=== PATIENT | female | born 1955 | race Caucasian/White ===

== ENCOUNTER 2022-09-07 11:01 | Outpatient (CLI) | payer OTHER, SELFPAY ==
[2022-09-07 11:22] LABS: Hematocrit 43.3 % (35.0-49.0); Hemoglobin 14.7 g/dL (12.0-15.0); Mean Corpuscular HGB Conc 33.9 g/dL (32.0-36.0); Mean Corpuscular Hemoglobin 33.2 pg (27.0-31.0); Mean Corpuscular Volume 97.7 fL (78.0-102.0); Mean Platelet Volume 9.4 fl (9.2-11.8); Platelet Count Result 264 K/mm3 (150-420); Red Blood Count 4.43 M/mm3 (4.20-5.40); White Blood Count 9.2 K/mm3 (4.8-10.8)
[2022-09-07 11:32] LABS: Hemoglobin A1C 6.4 % (<5.7)
[2022-09-07 11:55] LABS: Creatinine Urine 192.71 mg/dL (40-278); MALB Creatinine Ratio 6.7 mg/g (0-30); Microalbumin Urine Random < 13.0 mg/L
[2022-09-07 11:59] LABS: Alanine Aminotransferase 21 U/L (14-59); Alkaline Phosphatase 56 U/L (46-116); Anion Gap 12 mmol/L (8-16); Aspartate Amino Transferase 15 U/L (15-37); Bilirubin,Total 0.4 mg/dL (0.00-1.00); Blood Urea Nitrogen 13 mg/dL (7-18); Calcium 9.3 mg/dL (8.5-10.1); Carbon Dioxide 23 mmol/L (21-32); Chloride 107 mmol/L (98-108); Cholesterol 221 mg/dL (0-200); Estimated Glomerular Filt Rate > 60; Glucose 117 mg/dL (70-99); HDL Direct 58 mg/dL (40-60); LDL Cholesterol Calculated 142 mg/dL (<130); Osmolality Calculated 295 mOsm/kg (285-295); Sodium 142 mmol/L (136-145); Total Protein 7.1 g/dL (6.4-8.2); Triglycerides 103 mg/dL (0-150)
== END 2022-09-07 11:02 | disposition home or self-care (01) ==
PROVIDERS: PCP Family Medicine; Visit Provider Family Medicine
DX: E11.9 Type 2 diabetes mellitus without complications (principal); I10 Essential (primary) hypertension
CPT/HCPCS: 36415; 80053; 80061; 82043; 83036; 85027

== ENCOUNTER 2022-11-20 18:28 | Emergency (ER) | payer OTHER, SELFPAY ==
[2022-11-20 18:44] VITALS: BP 154/87; PULSE 88; RESP 20; TEMP 36.3; O2SAT 98
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
[2022-11-20 19:51] LABS: Hematocrit 43.9 % (35.0-49.0); Mean Corpuscular HGB Conc 34.2 g/dL (32.0-36.0); Mean Corpuscular Hemoglobin 32.6 pg (27.0-31.0); Mean Corpuscular Volume 95.4 fL (78.0-102.0); Mean Platelet Volume 9.4 fl (9.2-11.8); Platelet Count Result 315 K/mm3 (150-420); Red Cell Distribution Width 12.7 % (11.6-14.4); White Blood Count 9.9 K/mm3 (4.8-10.8)
[2022-11-20 20:02] LABS: Amphetamine Screen Urine Negative (Negative); Barbiturate Screen Urine Negative (Negative); Benzodiazepines Screen Urine Negative (Negative); Cannabinoid Screen Urine Positive (Negative); Cocaine Screen Urine Negative (Negative); Methadone Screen Urine Negative (Negative); Opiate Screen Urine Negative (Negative); Phencyclidine Screen Urine Negative (Negative)
[2022-11-20 20:05] LABS: Acetaminophen 15 ug/mL (10-30); Alanine Aminotransferase 28 U/L (14-59); Albumin Level 4.1 g/dL (3.4-5.0); Alkaline Phosphatase 74 U/L (46-116); Anion Gap 12 mmol/L (8-16); Aspartate Amino Transferase 13 U/L (15-37); Bilirubin,Total 0.4 mg/dL (0.00-1.00); Blood Urea Nitrogen 10 mg/dL (7-18); Calcium 9.2 mg/dL (8.5-10.1); Carbon Dioxide 26 mmol/L (21-32); Chloride 102 mmol/L (98-108); Estimated CRCL calculation 37 ml/min; Estimated Glomerular Filt Rate 47; Glucose 310 mg/dL (70-99); Osmolality Calculated 301 mOsm/kg (285-295); Potassium 3.3 mmol/L (3.5-5.1); Salicylate 5.4 mg/dL (2.8-20.0); Sodium 140 mmol/L (136-145); Total Protein 7.4 g/dL (6.4-8.2)
[2022-11-20 20:06] LABS: Ethanol < 3 mg/dL (0-6)
--- NOTE | 2022-11-20 20:31 | PC.NURSE ---
this staff member observed patient standing in room talking loudly in a joyful manner. this staff member asked the patient if she was talking to somebody. pt stated, I am just talking because there is no one else to talk to.
[2022-11-20 20:35] LABS: Influenza A QL RT-PCR Negative (Negative); Influenza B QL RT-PCR Negative (Negative); SARS-CoV-2 RNA PCR Negative (Negative)
--- NOTE | 2022-11-20 20:42 | PC.NURSE ---
this staff member asked the patient what medication she takes for her diabetes and pt stated, I don't have diabetes. I don't take any medications. Informed Md Gonzalez what the pt said.
--- NOTE | 2022-11-20 20:46 | PC.NURSE ---
pt attempted to leave the [employer] operatorShiv Morataya able to escort pt back to room 5. pt stated, I have asked are your questions and I am clear so I can go.
--- NOTE | 2022-11-20 20:49 | PC.NURSE ---
Pt attempted to walk out of the department and was redirected to room by this RN. [id number]
--- NOTE | 2022-11-20 20:51 | PC.NURSE ---
pt said that she is leaving. Md Gonzalez explained that she needs to stay until she is medical clear and that a social worker delinquency prevention would be called to talk to her. pt said, I am leaving. pt walked out of the ER. Md Gonzalez said to call the police to have the pt brought back to the ER.
--- NOTE | 2022-11-20 20:52 | PC.NURSE ---
requested i call police. [employer] was notified and was sending an officer 20:51
--- NOTE | 2022-11-20 20:56 | PC.NURSE ---
[place] Police in ER. [place] police asked if we wanted the pt back and Md Gonzalez said that you brought her in for psychiatric evaluation and we are not done with our evaluation so she needs to be brought back.
--- NOTE | 2022-11-20 21:05 | PC.NURSE ---
[place] police returned pt to ER. Pt placed in room five and per Md Gonzalez the door to room 5 can be locked.
--- NOTE | 2022-11-20 21:24 | PC.NURSE ---
Pt ambulated to bathroom with steady gait. pt returned to room 5. pt said, You don't need to lock the door. I know I can not leave. this staff member informed pt that the door will not be locked but she needs to remain in the room and the door needs to remain closed.
--- NOTE | 2022-11-20 21:26 | PC.NURSE ---
Pt opened door and exited room and started to walk down the caicedo. this staff member informed the pt that she needs to stay in the room with the door closed. pt returned to room 5 but wanted the door left open. this staff member informed that patients needs to remains in the room and the door needs to remain closed.
--- NOTE | 2022-11-20 21:29 | PC.NURSE ---
pt currently resting in bed at this time.
--- NOTE | 2022-11-20 21:45 | PC.NURSE ---
pt left room 5 and would not return to room 5. [place] police and [facility] police were still at ER and were requested to escort pt back to room 5. Pt returned to room 5 and per Md Gonzalez said that the door to room 5 can be locked for patient safety.
--- NOTE | 2022-11-20 21:50 | PC.NURSE ---
pt goes from resting on the bed to standing at the door yelling to have the door opened.
--- NOTE | 2022-11-20 21:55 | PC.NURSE ---
pt laying on floor talking under the door.
--- NOTE | 2022-11-20 22:07 | PC.NURSE ---
Pd called again for assistance with pt
[2022-11-20] MEDS: HALOPERIDOL LACTATE 5 MG/ML VIAL IM (22:21)
[2022-11-20] MEDS: LORazepam INJ (*CRX) 2 MG/ML VIAL IM (22:22)
[2022-11-20] MEDS: diphenhydrAMINE HCl INJ 50 MG/ML VIAL IM (22:22)
--- NOTE | 2022-11-20 22:25 | PC.NURSE ---
At 2205, pt requested to be allowed to use the bathroom. once pt was allowed out of room 5, pt would not use the bathroom and demanded to leave the ER. [employer] contacted while pt was walking out of the ER. [employer] met pt at the ER entrance and escorted pt back to room 5. pt requested water while being escorted back to room and was given a cup of water. pt threw the cup of water at the police. Md Gonzalez aware of the situation and new medication orders entered. Pt medicated with the assistance of turton , Md gonzalez, ANTHONY Morataya and ANTHONY Alberto.
--- NOTE | 2022-11-20 22:31 | PC.NURSE ---
pt banging on the room door and saying in a loud voice that she wants water. Pt was not given additional water because she has thrown water at the police. since 1900, pt has received 4 cups of water and allowed to use the bathroom three time with the last time at 2228. pt observed banging on TV screen, door and wall while stating in a loud voice that she wants water. pt currently laying on the floor and talking in a loud voice under the door that she wants water.
--- NOTE | 2022-11-20 22:52 | PC.NURSE ---
pt appears to be resting quietly on the floor facing the bottom of the door. pt being monitored by remote camera.
--- NOTE | 2022-11-20 23:01 | PC.NURSE ---
pt resting on bed at this time. pt being monitored via remote camera.
--- NOTE | 2022-11-20 23:49 | PC.NURSE ---
[facility] in ER at this time.
--- NOTE | 2022-11-21 04:11 | PC.NURSE ---
[facility] leaving the ER and will keep us updated with possible patient placement.
--- NOTE | 2022-11-21 05:39 | PC.NURSE ---
pt resting quietly in bed. pt being video monitored.
[2022-11-21 07:30] VITALS: BP 146/73; PULSE 87; RESP 14; TEMP 36.7; O2SAT 99
[2022-11-21 07:47] LABS: Glucose Point of Care 149 mg/dl (65-105)
[2022-11-21 10:59] VITALS: PULSE 72
[2022-11-21] MEDS: ZIPRASIDONE HCL 20 MG CAPSULE PO (10:59)
[2022-11-21] MEDS: METOPROLOL SUCCINATE EXT REL 25 MG TABCR PO (10:59)
[2022-11-21] MEDS: lisinopriL 5 MG TABLET PO (10:59)
[2022-11-21 11:30] VITALS: BP 131/65; PULSE 74; RESP 16; TEMP 36.7; O2SAT 99
--- NOTE | 2022-11-21 13:03 | PC.NURSE ---
@1251 [place] police dept. notified of pt left hospital and is wearing paper scrubs. @1253 2nd floor staff notified of pt elopement. @1258 er dept managers searching 1st floor corridors and external campus...pt not seen on er surveillance cameras. @1301 incoming staff called to report pt seen on side of road between [facility] and [facility]. [employer] notified.
--- NOTE | 2022-11-21 14:27 | PC.NURSE ---
@1400 spd contacted. pt not found. states they will go by her home to see if she shows up there. states they will bring her back if they find her.
--- NOTE | 2022-11-21 14:29 | PC.NURSE ---
@ 6223 [facility] notified of pt elopement and not returned.
--- NOTE | 2022-11-22 10:49 | PC.NURSE ---
pt arrives at this facility requesting belongings she left yesterday when she eloped from this er. pt belongings given to pt and pt left facility.
== END 2022-11-21 14:36 | disposition left against medical advice (07) ==
PROVIDERS: Emergency Medicine; Emergency Provider Emergency Medicine; PCP Family Medicine
DX: F29 Unspecified psychosis not due to a substance or known physiological condition (principal); E11.65 Type 2 diabetes mellitus with hyperglycemia; I10 Essential (primary) hypertension; Z87.891 Personal history of nicotine dependence; Z20.822 Contact with and (suspected) exposure to COVID-19
CPT/HCPCS: 36415; 80053; 80307; 82948; 85027; 87636; 96372; 99284; A9270; J1200; J1630; J2060

== ENCOUNTER 2023-05-03 12:52 | Outpatient (CLI) | payer MEDICARE, MEDICAID, SELFPAY ==
--- NOTE | ~2023-05-03 | MM_ITS ---
EXAMINATION: MM screening manuel BI w noé HISTORY: Screening mammogram TECHNIQUE: Craniocaudal and mediolateral oblique 3-D tomosynthesis images were obtained and synthetic 2-D images were generated. CAD analysis was submitted and interpreted. COMPARISON: No prior mammogram is available for comparison at this institution. BREAST PARENCHYMAL COMPOSITION: The breasts are heterogeneously dense, which may obscure small masses . FINDINGS: RIGHT BREAST: No suspicious mass, calcification, or architectural distortion are identified to sugges t malignancy. LEFT BREAST: There is possible architectural distortion in the middle third of the left breast best a ppreciated 7.5 cm from the nipple on the mediolateral oblique view in line with the nipple axis. IMPRESSION: 1. Possible left breast architectural distortion which may represent the patient's baseline however n o comparison is currently available. 2. Comparison with prior mammograms is necessary. BI-RADS Category 0: Incomplete: Needs comparison with prior mammograms. Reviewed, dictated and finalized at location A. CTION PREVENTIONIST IMPRESSION: 1. Possible left breast architectural distortion which may represent the patien t's baseline however no comparison is currently available. 2. Comparison with prior mammograms is necessary. BI-RADS Category 0: Incomplete: Needs comparison with prior mammograms.
== END 2023-05-03 12:53 | disposition home or self-care (01) ==
LOC: CHSIMG 12:54
PROVIDERS: PCP Family Medicine; Visit Provider Family Medicine
DX: Z12.31 Encounter for screening mammogram for malignant neoplasm of breast (principal); R92.8 Other abnormal and inconclusive findings on diagnostic imaging of breast
CPT/HCPCS: 77063; 77067

== ENCOUNTER 2023-06-30 08:54 | Outpatient (CLI) | payer MEDICARE, MEDICAID, SELFPAY ==
--- NOTE | ~2023-06-30 | MMUS_ITS ---
EXAMINATION: MM diagnostic manuel LT w noé, US breast LT complete HISTORY: Follow-up left breast asymmetry TECHNIQUE: Additional 3-D tomosynthesis images of the left breast were performed and synthetic 2-D im ages were generated. CAD analysis was submitted and interpreted. High resolution complete left breast ultrasound was performed. COMPARISON: Comparison to multiple prior studies sequentially, with oldest reviewed study dated 01/2018. BREAST PARENCHYMAL COMPOSITION: Dense: The breasts are heterogeneously dense, which may obscure small masses FINDINGS: MAMMOGRAPHIC FINDINGS: There are no suspicious masses, calcifications or architectural distortion in the left breast to sugg est malignancy ULTRASOUND: Complete US of all 4 quadrants of the left breast and retroareolar region was reviewed. Normal hetero geneous echotexture without focal solid or cystic mass. IMPRESSION: 1. No evidence for malignancy in the left breast. 2. Routine yearly screening mammogram and regular clinical breast examination are recommended. BI-RADS Category 1: Negative Reviewed, dictated and finalized at location A. J2EE APPLICATION DEVELOPER IMPRESSION: 1. No evidence for malignancy in the left breast. 2. Routine yearly screening mammogram and regular clinical breast examination a re recommended. BI-RADS Category 1: Negative
== END 2023-06-30 08:55 | disposition home or self-care (01) ==
LOC: CHSIMG 08:57
PROVIDERS: PCP Family Medicine; Visit Provider Family Medicine
DX: R92.8 Other abnormal and inconclusive findings on diagnostic imaging of breast (principal)
CPT/HCPCS: 76641; 77061; 77065; G0279

== ENCOUNTER 2023-09-13 11:26 | Outpatient (CLI) | payer MEDICARE, MEDICAID, SELFPAY ==
[2023-09-13 12:02] LABS: Hemoglobin A1C 6.2 % (<5.7)
[2023-09-13 12:23] LABS: Alanine Aminotransferase 26 U/L (14-59); Albumin Level 3.9 g/dL (3.4-5.0); Alkaline Phosphatase 46 U/L (46-116); Anion Gap 8 mmol/L (4-12); Aspartate Amino Transferase 16 U/L (15-37); Bilirubin,Total 0.3 mg/dL (0.00-1.00); Blood Urea Nitrogen 30 mg/dL (7-18); Calcium 8.3 mg/dL (8.5-10.1); Carbon Dioxide 28 mmol/L (21-32); Chloride 101 mmol/L (98-108); Cholesterol 247 mg/dL (0-200); Estimated Glomerular Filt Rate 46; Glucose 157 mg/dL (70-99); HDL Direct 77 mg/dL (40-60); LDL Cholesterol Calculated 97 mg/dL (<130); Osmolality Calculated 293 mOsm/kg (285-295); Potassium 4.8 mmol/L (3.5-5.1); Sodium 137 mmol/L (136-145); Total Protein 6.8 g/dL (6.4-8.2); Triglycerides 363 mg/dL (0-150)
[2023-09-15 10:33] LABS: Valproic Acid 59.2 mg/L (50.0-100.0)
== END 2023-09-13 11:27 | disposition home or self-care (01) ==
LOC: CHSLAB 11:28
PROVIDERS: PCP Family Medicine; Visit Provider Family Medicine
DX: F31.9 Bipolar disorder, unspecified (principal); E11.9 Type 2 diabetes mellitus without complications
CPT/HCPCS: 36415; 80053; 80061; 80164; 83036

== ENCOUNTER 2023-09-19 07:59 | Outpatient (RCR) | payer MEDICARE, MEDICAID, SELFPAY ==
--- NOTE | 2023-09-19 10:22 | PTOPEVAL1 ---
Assessment and note entered by Shyann Soto DPT Evaluation Information Assessment Status Evaluation Diagnosis low back pain, R radiating pain Onset 09/15/23 Subjective Information Patient reports she is unsure of an injury but has had low back pain and R LE radiating pain for about 3 weeks. She reports pain is at the R sided low back and pain radiates to the calf with foot numb. 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 She reports she has had 2 years of pain free. She reports pain with standing to do dishes, heavy house hold tasks, and walking her dog. She reports she has not had any imaging. She does not have a follow up scheduled with PCP. She reports she is not currently working. Reported Pain Level Pain Score 6: Self Report Assessment PT Clinical Summary Ms. Sherman is a 67 year old female who presents to PT with R sided low back pain with radiating symptoms. Patient demonstrates decreased R LE strength, decreased R LE sensation, hypomobility to the lumbar spine and R anterior innominate rotation impairing her ability to sweet pickled fruit maker objects from the ground, stand to do dishes and ambulate to walk her dog. She would benefit from skilled PT to address impairments and return to PLOF. Plan of Care Interventions Electrical Stimulation,Gait Training,Hot Pack/Cold Pack,Manual Therapy,Mechanical Traction,Neuro Re- education,Patient/Caregiver Educati,Therapeutic Activities,Therapeutic Exercise PT Services Indicated Yes Treatment Frequency and 3x weekly for 12 visits Duration These treatments will address the objective and functional deficits as defined above. The patient will be advanced safely and appropriately in order for the patient to progress towards his/her prior level of function. Additional exercises will be introduced and as well as a comprehensive home exercise program upon discharge, if needed, ?to ensure carryover of functional gains achieved in the clinic. This treatment plan has been reviewed and agreement upon by the patient.
--- NOTE | 2023-09-19 10:22 | OPREHPOC ---
Outpatient Therapy Plan of Care This is a Multidisciplinary Plan of Care that may contain components documented by all disciplines (PT, OT, and ST.) PT Problem 1 PT Problem #1 Knowledge Deficit PT Goal 1 Goal patient to report independence with HEP Target Visit 6 PT Problem 2 PT Problem #2 Pain PT Goal 1 Goal 1. patient to report highest pain at 4/10 2. patient to report ability to sleep with no disturbance due to low back pain Target Visit 12 PT Problem 3 PT Problem #3 Impaired Range of Motion PT Goal 1 Goal Patient to demonstrate ability to reach to the floor to return to picking up objects around the home Target Visit 12 PT Problem 4 PT Problem #4 Impaired Strength PT Goal 1 Goal Patient to demonstrate 5/5 B LE strength to return to standing to complete dishes Target Visit 12 PT Problem 5 PT Problem #5 Impaired Functional Mobil PT Goal 1 Goal 1. Patient to report ability to walk her dog for 30 minutes 2. Patient to report ability to complete house hold tasks at PLOF 3. Patient to score less than 20% disability on Back Index Target Visit 12
--- NOTE | 2023-10-04 14:02 | PCPTNOTE ---
10/04/23: Pt cancelled today's appointment due to not feeling well. She will be in on 10/06/23. -Yenny Sanchez, PT
--- NOTE | 2023-10-11 16:43 | OPREHPOC ---
Outpatient Therapy Plan of Care This is a Multidisciplinary Plan of Care that may contain components documented by all disciplines (PT, OT, and ST.) PT Problem 1 PT Problem #1 Knowledge Deficit PT Goal 1 Goal patient to report independence with HEP Target Visit 6 Progress Met PT Problem 2 PT Problem #2 Pain PT Goal 1 Goal 1. patient to report highest pain at 4/10 2. patient to report ability to sleep with no disturbance due to low back pain Target Visit 12 Progress Met PT Problem 3 PT Problem #3 Impaired Range of Motion PT Goal 1 Goal Patient to demonstrate ability to reach to the floor to return to picking up objects around the home Target Visit 12 Progress Met PT Problem 4 PT Problem #4 Impaired Strength PT Goal 1 Goal Patient to demonstrate 5/5 B LE strength to return to standing to complete dishes Target Visit 12 Progress Partially Met PT Problem 5 PT Problem #5 Impaired Functional Mobil PT Goal 1 Goal 1. Patient to report ability to walk her dog for 30 minutes 2. Patient to report ability to complete house hold tasks at PLOF 3. Patient to score less than 20% disability on Back Index Target Visit 12 Progress Not Met
--- NOTE | 2023-10-11 16:43 | PTOPPROG ---
Assessment and note entered by JT File, PT Evaluation Information Assessment Status Progress Diagnosis low back pain, R radiating pain Onset 09/15/23 Subjective Information patient reports she no longer has pain in the lower back. however, she is still suffering from numbness in the R LE down to the calf and foot. Assessment PT Clinical Summary mr. gotti presents to skilled PT services for her 10th skilled PT visit today. she displays improvements in lumbar rom, LE strength, and pain reduction. however, she continues to have radicular symptoms in the R LE. she has made good progress towards all goals, and would benefit from continued skilled PT to address her remaining objective/functional deficits to return to all prior level functional activities/quality of life. Plan of Care Interventions Electrical Stimulation,Gait Training,Hot Pack/Cold Pack,Manual Therapy,Mechanical Traction,Neuro Re- education,Patient/Caregiver Educati,Therapeutic Activities,Therapeutic Exercise PT Services Indicated Yes Treatment Frequency and continue skilled PT per initial POC. Duration These treatments will address the objective and functional deficits as defined above. The patient will be advanced safely and appropriately in order for the patient to progress towards his/her prior level of function. Additional exercises will be introduced and as well as a comprehensive home exercise program upon discharge, if needed, ?to ensure carryover of functional gains achieved in the clinic. This treatment plan has been reviewed and agreement upon by the patient.
--- NOTE | 2023-10-27 07:44 | OPREHPOC ---
Outpatient Therapy Plan of Care This is a Multidisciplinary Plan of Care that may contain components documented by all disciplines (PT, OT, and ST.) PT Problem 1 PT Problem #1 Knowledge Deficit PT Goal 1 Goal patient to report independence with HEP Target Visit 6 Progress Met PT Problem 2 PT Problem #2 Pain PT Goal 1 Goal 1. patient to report highest pain at 4/10 2. patient to report ability to sleep with no disturbance due to low back pain Target Visit 12 Progress Met PT Problem 3 PT Problem #3 Impaired Range of Motion PT Goal 1 Goal Patient to demonstrate ability to reach to the floor to return to picking up objects around the home Target Visit 12 Progress Met PT Problem 4 PT Problem #4 Impaired Strength PT Goal 1 Goal Patient to demonstrate 5/5 B LE strength to return to standing to complete dishes Target Visit 18 Progress Partially Met PT Problem 5 PT Problem #5 Impaired Functional Mobil PT Goal 1 Goal 1. Patient to report ability to walk her dog for 30 minutes 2. Patient to report ability to complete house hold tasks at PLOF 3. Patient to score less than 20% disability on Back Index 4. Patient to report no R LE radicular symptoms. Target Visit 18 Progress Not Met
--- NOTE | 2023-10-27 07:45 | PTOPREEVAL ---
Assessment and note entered by JT File, PT Evaluation Information Assessment Status Re-evaluation Diagnosis low back pain, R radiating pain Onset 09/15/23 Subjective Information patient reports she feels Alright today. she reports she has no lower back pain, but has continued radiation of symptoms into the R LE. she reports things have gotten better with skilled PT , but has not resolved this R LE issue. Reported Pain Level Pain Score 1: Self Report Assessment PT Clinical Summary mrs. gotti presents to skilled PT services today for her 12th skilled therapy visit. she presents today again with no pain in the lower back, but R LE radicular complaints/symptoms. she continues to display weakness of the R hip and R knee. progress has been made towards goals, as reported today and on her last progress note. however, she continues to not have met goals for strength and functional mobility. she would benefit from continued skilled PT to address her remaining deficits/functional decline. initiated mechanical lumbar traction today with patient. will continue to monitor response to this treatment, and add additional exercises/activities as tolerated to achieve remaining unmet goals. Plan of Care Interventions Electrical Stimulation,Gait Training,Hot Pack/Cold Pack,Manual Therapy,Mechanical Traction,Neuro Re- education,Patient/Caregiver Educati,Therapeutic Activities,Therapeutic Exercise PT Services Indicated Yes Treatment Frequency and continue skilled PT 3x weekly for 6 more visits Duration These treatments will address the objective and functional deficits as defined above. The patient will be advanced safely and appropriately in order for the patient to progress towards his/her prior level of function. Additional exercises will be introduced and as well as a comprehensive home exercise program upon discharge, if needed, ?to ensure carryover of functional gains achieved in the clinic. This treatment plan has been reviewed and agreement upon by the patient.
--- NOTE | 2023-11-01 13:54 | PCPTNOTE ---
pt called and cancelled. No reason given
--- NOTE | 2023-11-10 11:23 | OPREHPOC ---
Outpatient Therapy Plan of Care This is a Multidisciplinary Plan of Care that may contain components documented by all disciplines (PT, OT, and ST.) PT Problem 1 PT Problem #1 Knowledge Deficit PT Goal 1 Goal patient to report independence with HEP Target Visit 6 Progress Met PT Problem 2 PT Problem #2 Pain PT Goal 1 Goal 1. patient to report highest pain at 4/10 2. patient to report ability to sleep with no disturbance due to low back pain Target Visit 12 Progress Met PT Problem 3 PT Problem #3 Impaired Range of Motion PT Goal 1 Goal Patient to demonstrate ability to reach to the floor to return to picking up objects around the home Target Visit 12 Progress Met PT Problem 4 PT Problem #4 Impaired Strength PT Goal 1 Goal Patient to demonstrate 5/5 B LE strength to return to standing to complete dishes Target Visit 18 Progress Not Met PT Problem 5 PT Problem #5 Impaired Functional Mobil PT Goal 1 Goal 1. Patient to report ability to walk her dog for 30 minutes. met 2. Patient to report ability to complete house hold tasks at PLOF. met 3. Patient to score less than 20% disability on Back Index. met 4. Patient to report no R LE radicular symptoms. not met Target Visit 18 Progress Not Met
--- NOTE | 2023-11-10 11:23 | PTOPDC ---
Assessment and note entered by JT File, PT Evaluation Information Assessment Status Discharge Diagnosis low back pain, R radiating pain Onset 09/15/23 Subjective Information patient reports she is a lot better today. she reports she still has some trouble walking and feels she is slower walking, but overall is much better since her last re-evaluation and since her initial evaluation. she reports she has tingling and numbness still in the R LE/foot, but not as severe as it was at initial evaluation and her last re-evaluation. patient reports she has no lower back pain. she reports she is back to doing all activities around the home without issues. she reports the lumbar mechanical traction has been helping her lately. she reports the hardest thing to do is carry groceries into the home. Reported Pain Level Pain Score 0: Self Report Assessment PT Clinical Summary mrs. gotti presents to skilled PT services for her re-evaluation. she presents today with no pain in the lower back, and reduction of R LE radicular symptoms. however, she reports some radicular symptoms still remain. she has met all goals for skilled PT, except for R LE radicular symptoms elimination and 5/5 hip strength. she is compliant with her HEP at home, and is ready to get back to yoga and other exercise activities. she will be DC'd from skilled PT services today, and continue with HEP and return to prior level exercises activities including yoga. Plan of Care PT Services Indicated Yes
== END 2023-11-10 14:08 | disposition home or self-care (01) ==
LOC: CHSPT 07:59
PROVIDERS: Visit Provider Family Medicine
DX: M54.30 Sciatica, unspecified side (principal)
CPT/HCPCS: 97012; 97014; 97110; 97112; 97140; 97150; 97161; G0283

== ENCOUNTER 2023-11-07 14:51 | Outpatient (NON) | payer MEDICARE, MEDICAID, SELFPAY | END 2023-11-07 14:52 | disposition home or self-care (01) | LOC: CHSLAB 14:53 | PROVIDERS: Visit Provider Family Medicine | DX: L82.1 Other seborrheic keratosis (principal); D22.61 Melanocytic nevi of right upper limb, including shoulder | CPT/HCPCS: 88305 ==

== ENCOUNTER 2023-11-17 10:45 | Outpatient (NON) | payer MEDICARE, SELFPAY | END 2023-11-17 10:46 | disposition home or self-care (01) | LOC: CHSLAB 10:47 | PROVIDERS: Visit Provider Family Medicine | DX: D22.5 Melanocytic nevi of trunk (principal) | CPT/HCPCS: 88305 ==

== ENCOUNTER 2024-08-01 14:11 | Outpatient (CLI) | payer MEDICARE, MEDICAID, SELFPAY ==
--- NOTE | ~2024-08-01 | MM_ITS ---
EXAMINATION: MM screening [facility] BI w noé HISTORY: Screening TECHNIQUE: Craniocaudal and mediolateral oblique 3-D tomosynthesis images were obtained and synthetic 2-D images were generated. CAD analysis was submitted and interpreted. COMPARISON: 06/30/2023 and dating back to 06/06/2017 BREAST PARENCHYMAL COMPOSITION: The breasts are heterogeneously dense, which may obscure small masses . FINDINGS: Punctate and bulky calcifications are detected bilaterally, stable and benign in appearance . Stable parenchymal pattern without suspicious microcalcifications, architectural distortion, discrete masses or significant asymmetry. IMPRESSION: 1. No mammographic/tomographic evidence of malignancy. 2. Recommend routine screening mammography in one year. BI-RADS Category 2: Benign finding(s). Reviewed, dictated and finalized at location A. RUMENTAL MUSIC TEACHER
--- OUTSIDE RECORDS SUMMARY | 2024-08-01 15:33 | XMS_ITS | Clinical Summary ---
Author Organization [facility] Address [address] [place] [address] Care Team Providers Care Occupational Therapist Aide Name Role Phone Unknown, Notinfile Primary Care Provider Unavail able Allergies Active Allergy Reactions Criticality Noted Date Comments House Dust Mite Headache Low 04/01/2022 Nitrofurantoin Hives Medium 03/13/2022 Mold Headache Low 04/01/2022 Soy Headache Low 04/01/2022 Medications montelukast (SINGULAIR) 10 mg tablet Take 1 tablet (10 mg total) by mouth nightly 90 tablet 3 2 Active lisinopriL (PRINIVIL,ZESTRIL ) 5 mg tabletIndications :Primary hypertension Take 1 tablet (5 mg total) by mouth daily 90 tablet 3 3 Active metoprolol XL (TOPROL-XL) 25 mg extended release tabletIndications :Primary hypertension Take 1 tablet (25 mg total) by mouth daily 90 tablet 3 3 Active Trulicity 1.5 mg/0.5 mL pen injectorIndicatio ns:type 2 diabetes mellitus Inject 0.5 mL (1.5 mg total) under the skin once a week 6 mL 3 3 Active Active Problems Problem Noted Date Diagnosed Date Type 2 diabetes mellitus wit h hyperglycemia, without long-term current use of insulin 03/18/2022 Primary hypertension 03/18/2022 Mixed hyperlipidemia 03/18/2022 Immunizations Immunization Administration Dates Next Due Tdap 12/10/2021 Medical History Medical History Date Comments Diabetes mellitus (HCC) Hypertension Family History Medical History Relation Name Comments Alcohol abuse Brother 1 Terrell Diabetes Brother 2 Javi Allergy (severe) Daughter Vika Asthma Daughter Vika Depression Daughter Vika Alcohol abuse Father Timo Cancer Father Timo Hyperlipidemia Father Timo Hypertension Father Timo Heart disease Maternal Grandfather Marva Cancer Maternal Grandmother Goome Heart disease Maternal Grandmother Goome Hypertension Maternal Grandmother Goome Allergy (severe) Mother Luana Asthma Mother Luana Depression Mother Luana Heart disease Mother Luana Hyperlipidemia Mother Luana Hypertension Mother Luana Hyperlipidemia Paternal Grandfather Feliciano Hypertension Paternal Grandfather Feliciano Stroke Paternal Grandmother Cindi Learning disabilities Son Andrew Relation Name Status Comments Brother 1 Terrell Brother 2 Javi Daughter Vika Father Timo Maternal Grandfather Marva Maternal Grandmother Goome Mother Luana Paternal Grandfather Feliciano Paternal Grandmother Cindi Son Andrew Social History Tobacco Use Types Packs/Day Years Used Date Smoking Tobacco: Former Cigarettes Tobacco Cessation:Ready to Q uit: Not Asked; Counseling Given: Not Answered Personal Safety Answer Date Recorded Getting School Help Needed Not on file 06/19 Comments No Sex and Gender Information Value Date Recorded Sex Assigned at Not on file Legal Sex Female 4:21 PM CDT Gender Identity Not on file Sexual Orientation Not on file Obstetrics History Last Filed Vital Signs Vital Sign Reading Time Taken Comments Blood Pressure 154/85 04/01/2022 3:34 PM CDT Pulse 84 04/01/2022 3:34 PM CDT Temperature 36.6 C (97.8 F) 04/01/2022 3:34 PM CDT Respiratory Rate 18 04/01/2022 3:34 PM CDT Oxygen Saturation 99% 04/01/2022 3:34 PM CDT Inhaled Oxygen Concentration - - Weight 73.5 kg (162 lb) 04/01/2022 3:34 PM CDT Height 162.6 cm (5' 4 ) 04/01/2022 3:34 PM CDT Body Mass Index 27.81 04/01/2022 3:34 PM CDT Plan of Treatment Scheduled Procedures Name Priority Associated Diagnoses Date/Ti me COLONOSCOPY Healthcare maintenance COLONOSCOPY Family hx of colon cancer requiring screening colonoscopy Health Maintenance Due Date Last Done Comments Breast Cancer Screening-Mammogram 1957 Colon Cancer Screening-Colonoscopy 1957 Depression Screening 1957 Fall Risk Assessment 1957 Hemoglobin A1C 1957 Hepatitis C Screening 1957 Osteoporosis Screening-Bone Density Scan 1957 Dilated Eye Exam 1957 Foot Exam 1957 Pneumococcal vaccine 65+ (1 of 2 - PCV) 12/19/1963 Hepatitis B Screening 12/19/1975 Zoster Vaccine (1 of 2) 12/19/2007 Well Visit 65+ 2022 Albumin Creatinine Ratio, Urine 03/18/2023 Lipid Panel 03/18/2023 03/18/2022 eGFR 03/18/2023 03/18/2022, 03/13/2022 Influenza Vaccine (#1) 2024 DTaP/Tdap/Td Vaccine (2 - Td or Tdap) 12/11/2031 Procedures Procedure Name Priority Date/Time Associated Diagnosis Comments COMPREHENSIVE METABOLIC PANEL Routine 03/18/2022 1:24 PM CDT Type 2 diabetes mellitus with hyperglycemia, without long-term current use of insulin (HCC) LIPID PANEL Routine 03/18/2022 1:24 PM CDT Type 2 diabetes mellitus with hyperglycemia, without long-term current use of insulin (HCC) ALBUMIN CREATININE RATIO, URINE Routine 03/18/2022 1:24 PM CDT Type 2 diabetes mellitus with hyperglycemia, without long-term current use of insulin (HCC) from Last 3 Months or Most Recently Relevant to Health Maintenance Results * Albumin Creatinine Ratio, Urine (03/18/2022 1:24 PM CDT) Microalb, Ur <7.0 0.0 - 22.9 mg/L [facility] Comment:Repeated and Verifie d Random Urine Creatinine 28.5 mg/dL [facility] Microalb/Creat Ratio <24.6 0.0 - 29.9 mg/g [facility] Urine 03/18/2022 1:24 PM CDT 03/18/2022 2:21 PM CDT us Savanah Delvalle MD LAB URINE ORDERABLES Final Re sult [facility] * (ABNORMAL) Lipid panel (03/18/2022 1:24 PM CDT) Triglycerides 336(H) <150 mg/dL [facility] Comment: Desirable: <150 mg/dL, fasting <175 mg/dL, non-fasting Persistently elevated triglycerides may enhance atherosclerotic cardiovascular disease. Total Cholesterol 283(H) <200 mg/dL [facility] Total HDL-C Direct 57 >50 mg/dL [facility] Non-HDL cholesterol 226(H) 100 - 219 mg/dL [facility] Comment: Non-HDL-C values greater than or equal to 220 mg/dL could indicate inherited hyperlipidemia. Friedewald LDL Chol 159 70 - 189 mg/dL [facility] Comment: The Friedewald equation is accurate in most patients when triglycerides are less than 150 mg/dL. Consider the use of non-HDL-C or Apo B to help estimate atherosclerotic cardiovascular diesase risk if triglycerides are elevated. Blood 03/18/2022 1:24 PM CDT 03/18/2022 2:21 PM CDT Narrative [facility] - 03/18/2022 3:25 PM CDT Current interpretive data was last updated April 30, 2021. For adults ages 40-79, the ACC/AHA recommends discussing your 10-year atherosclerotic cardiovascular disease risk with your health care provider. https://www.acc.org/ASCVDApp These lab test should be done fasting. This means do not eat or drink for at least 12 hours prior to getting your blood drawn. us Savanah Delvalle MD LAB BLOOD ORDERABLES Final Re sult [facility] * (ABNORMAL) Comprehensive metabolic panel (03/18/2022 1:24 PM CDT) Pathologist [facility] Total Protein 7.0 6.1 - 8.4 g/dL [facility] Albumin 4.8 3.5 - 5.2 g/dL [facility] Calcium 10.1 8.6 - 10.3 mg/dL [facility] BUN 17 7 - 23 mg/dL [facility] Total Bilirubin 0.23 0.20 - 1.40 mg/dL [facility] Alk Phos, Total 90 35 - 129 IU/L [facility] AST (SGOT) 29 11 - 47 IU/L [facility] ALT (SGPT) 32 6 - 53 IU/L [facility] Creatinine 0.82 0.60 - 1.10 mg/dL [facility] Sodium 139 135 - 145 mmol/L [facility] Potassium 4.3 3.3 - 5.1 mmol/L [facility] Chloride 104 95 - 107 mmol/L [facility] CO2 Content 20(L) 21 - 29 mmol/L [facility] Glucose 162(H) 64 - 99 mg/dL [facility] Comment: NONFASTING GLUCOSE RANGE = 64-199 mg/dL FASTING GLUCOSE 64 - 99 = NORMAL FASTING GLUCOSE 100 - 125 = IMPAIRED FASTING GLUCOSE FASTING GLUCOSE >=126 = PROVISIONAL DIAGNOSIS OF DIABETES eGFR 79.8 >60.0 mL/min/1.7 3 m2 [facility] Blood 03/18/2022 1:24 PM CDT 03/18/2022 2:21 PM CDT us Savanah Delvalle MD LAB BLOOD ORDERABLES Final Re sult [facility] from Last 3 Months or Most Recently Relevant to Health Maintenance Insurance [place] [employer] Care Teams Occupational Therapist Aide Relationship Specialty Start Date End Date Unknown, Notinfile PCP - General 12/10/21
--- OUTSIDE RECORDS SUMMARY | 2024-08-01 15:33 | XMS_ITS | Referral Summary ---
Author Organization [facility] Address [address] [place] [address] Care Team Providers Care Detective Automobile Section Name Role Phone Unknown, Notinfile Primary Care [...] Immunization Administration Dates Next Due Tdap 12/10/2021 Social History Tobacco Use Types Packs/Day Years [...] on file Sexual Orientation Not on file Last Filed Vital Signs Vital Sign Reading [...] Scheduled Procedures Name Priority Associated Diagnoses Date/Ti id COLONOSCOPY Healthcare maintenance COLONOSCOPY Family hx of colon cancer requiring screening colonoscopy Procedures Procedure Name Priority Date/Time Associated Diagnosis [...] 1:24 PM CDT 03/18/2022 2:21 PM CDT Savanah Delvalle MD LAB URINE ORDERABLES Final Re sult Performing Organization Address [facility] Co de Phone Number [facility] * (ABNORMAL) Lipid panel (03/18/2022 1:24 PM CDT) Triglycerides 336(H) <150 mg/dL [facility] Comment: Desirable: <150 mg/dL, fasting <175 mg/dL, non-fasting Persistently elevated triglycerides may enhance atherosclerotic cardiovascular disease. Total Cholesterol 283(H) <200 mg/dL [facility] Total HDL-C Direct 57 >50 mg/dL [facility] Non-HDL cholesterol 226(H) 100 - 219 mg/dL [facility] Comment: Non-HDL-C values greater than or equal to 220 mg/dL could indicate inherited hyperlipidemia. Friedewald LDL Chol 159 70 - 189 mg/dL [facility] Comment: The Friedewald equation is accurate in most patients when triglycerides are less than 150 mg/dL. Consider the use of non-HDL-C or Apo B to help estimate atherosclerotic cardiovascular diesase risk if triglycerides are elevated. Blood 03/18/2022 1:24 PM CDT 03/18/2022 2:21 PM CDT Narrative [facility] - 03/18/2022 3:25 PM CDT Current interpretive data was last updated April 30, 2021. For adults ages 40-79, the ACC/AHA recommends discussing your 10-year atherosclerotic cardiovascular disease risk with your health care provider. https://www.acc.org/ASCVDApp These lab test should be done fasting. This means do not eat or drink for at least 12 hours prior to getting your blood drawn. Savanah Delvalle MD LAB BLOOD ORDERABLES Final Re sult Performing Organization Address City/[facility]/ZIP Co de Phone Number [facility] * (ABNORMAL) Comprehensive metabolic panel (03/18/2022 1:24 PM CDT) Total Protein 7.0 6.1 - 8.4 g/dL [...] Most Recently Relevant to Health Maintenance Insurance [facility] [address] HEALTH PLAN [facility] [employer] [facility] [employer] Care Teams Detective Automobile Section Relationship Specialty Start Date End Date Unknown, Notinfile PCP - General 12/10/21
== END 2024-08-01 14:12 | disposition home or self-care (01) ==
LOC: CHSIMG 14:13
PROVIDERS: PCP Family Medicine; Visit Provider Family Medicine
DX: Z12.31 Encounter for screening mammogram for malignant neoplasm of breast (principal)
CPT/HCPCS: 77063; 77067

== ENCOUNTER 2024-12-06 00:36 | Day surgery (SDC) | payer MEDICARE, MEDICAID, SELFPAY ==
[2024-11-15 12:25] VITALS: BMI 29.9
--- OUTSIDE RECORDS SUMMARY | 2024-12-06 00:38 | XMS_ITS | Referral Summary ---
Author Organization [facility] Address [address] [place] [address] Care Team Providers Care Social Organization Professor Name Role Phone Unknown, Notinfile Primary Care [...] 3:34 PM CDT Height 162.6 cm (5' 4) 04/01/2022 3:34 PM CDT Body Mass Index 27.81 04/01/2022 3:34 PM CDT Plan of Treatment Scheduled Procedures Name Priority Associated Diagnoses Date/Ti ny COLONOSCOPY Healthcare maintenance COLONOSCOPY Family hx of [...] ORDERABLES Final Re sult Performing Organization Address [facility] Co de Phone Number [facility] * (ABNORMAL) Lipid panel (03/18/2022 1:24 PM CDT) Triglycerides 336(H) <150 mg/dL [facility] Comment: Desirable: <150 mg/dL, fasting <175 mg/dL, non-fasting Persistently elevated triglycerides may enhance atherosclerotic cardiovascular disease. Total Cholesterol 283(H) <200 mg/dL [facility] Total HDL-C Direct 57 >50 mg/dL [facility] Non-HDL cholesterol 226(H) 100 - 219 mg/dL [facility] Comment: Non-HDL-C values greater than or equal to 220 mg/dL could indicate inherited hyperlipidemia. Friedewald LDL Chol 159 70 - 189 mg/dL [facility] Comment: The Friedewald equation is accurate in most patients when triglycerides are less than 150 mg/dL. Consider the use of non-HDL-C or Apo B to help estimate atherosclerotic cardiovascular diesase risk if triglycerides are elevated. Blood 03/18/2022 1:24 PM CDT 03/18/2022 2:21 PM CDT Narrative [facility] - 03/18/2022 3:25 PM [...] ORDERABLES Final Re sult Performing Organization Address City/[facility]/ZIP Co de Phone Number [facility] * [...] Relevant to Health Maintenance Insurance [facility] [address] HEALTH PLAN [facility] [employer] [facility] [employer] Care Teams Social Organization Professor Relationship Specialty Start Date End Date Unknown, Notinfile PCP - General 12/10/21
--- OUTSIDE RECORDS SUMMARY | 2024-12-06 00:38 | XMS_ITS | Clinical Summary ---
Author Organization [facility] Address [address] [place] [address] Care Team Providers Care Machine Maintenance Servicer Name Role Phone Unknown, Notinfile Primary Care [...] Dilated Eye Exam 1957 Foot Exam 1957 Hepatitis B Screening 12/19/1975 Pneumococcal vaccine 65+ (1 of 2 - PCV) 1976 Zoster Vaccine (1 of 2) 12/19/2007 Well Visit 65+ 2022 Albumin Creatinine Ratio, Urine 03/18/2023 Lipid Panel 03/18/2023 03/18/2022 eGFR 03/18/2023 03/18/2022, 03/13/2022 Influenza Vaccine (Season Ended) 2025 DTaP/Tdap/Td Vaccine (2 - Td or Tdap) [...] MD LAB URINE ORDERABLES Final Re sult [facility] * [...] PM CDT 03/18/2022 2:21 PM CDT Narrative [facility] - 03/18/2022 3:25 PM [...] MD LAB BLOOD ORDERABLES Final Re sult [facility] * (ABNORMAL) Comprehensive metabolic panel (03/18/2022 1:24 PM CDT) Pathologist [facility] Total Protein 7.0 6.1 - 8.4 g/dL [...] Most Recently Relevant to Health Maintenance Insurance [facility] [facility] Address: [address] [address] [employer] [facility] Address: [address] [address] IDPA Care Teams Machine Maintenance Servicer Relationship Specialty Start Date End Date Unknown, Notinfile PCP - General 12/10/21
[2024-12-06 06:51] VITALS: BP 157/104; PULSE 91; RESP 18; TEMP 36.6; O2SAT 99
[2024-12-06] MEDS: LACTATED RINGERS 1,000 ML 150 ML IV CONT (06:58)
--- NOTE | 2024-12-06 07:24 | WPDANESEPPF ---
Anes - Initial Pre Proc Eval Procedure: Operation Date: 12/06/24 08:00 Proposed Procedures p Screening Colonoscopy - Ed Lassiter MD Date/Time: 12/06/24 07:24 Surgeon: Ed Lassiter MD Pre Op Diagnosis: Screening Patient Data Age: 68 Gender: F Height: 1.63 m Weight: 75.9 kg Last Vital Signs Temp 36.6 C 12/06/24 06:51 Pulse 91 12/06/24 06:51 Resp 18 12/06/24 06:51 BP 157/104 H 12/06/24 06:51 Pulse Ox 99 12/06/24 06:51 O2 Del Method Room Air 12/06/24 06:51 Allergies Allergy/AdvReac Type Severity Reaction Status Date / Time nitrofurantoin (From Allergy Severe Hives Verified 12/06/24 06:50 Macrobid) soy Allergy Severe Migraine Verified 12/06/24 06:50 Home Medications ?Medication ?Instructions ?Recorded ?Confirmed ?Type dextroamphetamine-amphetamine 5 mg 10 mg PO DAILY 10/06/23 12/06/24 History tablet cariprazine 1.5 mg capsule 1.5 mg PO DAILY 04/12/24 12/06/24 History (Vraylar) propranolol 10 mg tablet 10 mg PO Q12H 04/12/24 12/06/24 History dapagliflozin propanediol 10 mg 10 mg PO DAILY #90 tabs 08/19/24 12/06/24 Rx tablet (Farxiga) lisinopril 2.5 mg tablet See Rx Instructions .Route 11/08/24 12/06/24 Rx .COMPLEX #180 tabs gabapentin 250 mg/5 mL oral 100 mg PO Q8H 11/15/24 12/06/24 History solution trazodone 50 mg tablet 50 mg PO QPM 11/15/24 12/06/24 History tirzepatide 12.5 mg/0.5 mL See Rx Instructions .Route 12/05/24 12/06/24 Rx subcutaneous pen injector .COMPLEX #2 mL (Mounjaro) Laboratory Tests 12/06/24 06:59 POC Capillary Glucose 143 H mg/dl (65-105) Patient hx anesthesia problems: none Family hx anesthesia problems: none Results Review: All pre-operative results and documents have been reviewed as part of the pre-operative evaluation. [facility] Past Medical History Medical History DM2 (diabetes mellitus, type 2) Hypertension Surgical History Surgical History No history of previous surgery Social History Social History Smoking status: Former smoker Additional smoking assessment comments: Has been smoking off/on for many years Substance use type: marijuana Anes - Eval Final PreProcedure Day of Procedure 12/06/24 07:24 Patient weight: overweight Heart: regular rate and rhythm Lungs: clear to auscultation Airway: Mallampati scale class II Neurological: alert and oriented Last oral intake: >/= 8 hours ASA classification: III Emergent: no Anesthetic plan: proceed Anesthesia type and monitoring: general GIVS and standard monitoring Results Review: All pre-operative results and documents have been reviewed as part of the pre-operative evaluation. Informed Consent: The patient's anesthetic plan and its attendant risks and benefits were discussed with the patient/family/POA. Questions were solicited and answers provided to the satisfaction of the patient/family/POA.
--- NOTE | 2024-12-06 07:45 | PM.IMHP ---
H&P: HPI History of Present Illness Date/Time: 12/06/24 07:45 Chief Complaint: Family history of colorectal cancer Narrative: This patient has family history of colorectal cancer. her father had colorectal cancer at age 70. Review of Systems Review of Systems: All systems reviewed & are unremarkable except as noted in HPI and below PMFSH Past Medical History Medical History DM2 (diabetes mellitus, type 2) Hypertension Surgical History Surgical History No history of previous surgery Social History Social History Smoking status: Former smoker Additional smoking assessment comments: Has been smoking off/on for many years Substance use type: marijuana Meds Home Medications and Allergies Home Medications ?Medication ?Instructions ?Recorded ?Confirmed ?Type dextroamphetamine-amphetamine 5 mg 10 mg PO DAILY 10/06/23 12/06/24 History tablet cariprazine 1.5 mg capsule 1.5 mg PO DAILY 04/12/24 12/06/24 History (Vraylar) propranolol 10 mg tablet 10 mg PO Q12H 04/12/24 12/06/24 History dapagliflozin propanediol 10 mg 10 mg PO DAILY #90 tabs 08/19/24 12/06/24 Rx tablet (Farxiga) lisinopril 2.5 mg tablet See Rx Instructions .Route 11/08/24 12/06/24 Rx .COMPLEX #180 tabs gabapentin 250 mg/5 mL oral 100 mg PO Q8H 11/15/24 12/06/24 History solution trazodone 50 mg tablet 50 mg PO QPM 11/15/24 12/06/24 History tirzepatide 12.5 mg/0.5 mL See Rx Instructions .Route 12/05/24 12/06/24 Rx subcutaneous pen injector .COMPLEX #2 mL (Mounjaro) Allergies Allergy/AdvReac Type Severity Reaction Status Date / Time nitrofurantoin (From Allergy Severe Hives Verified 12/06/24 06:50 Macrobid) soy Allergy Severe Migraine Verified 12/06/24 06:50 Vital Signs Vital Signs - 24 hr 12/06/24 06:51 Temperature 98 F Pulse Rate 91 Respiratory Rate 18 Blood Pressure 157/104 H Pulse Oximetry 99 Oxygen Delivery Room Air Exam Const: General: cooperative and healthy appearing Resp: Effort & Inspection: normal respiratory effort and able to speak in complete sentences Auscultation: clear to auscultation bilaterally Cardio: Rate: regular rate Rhythm: regular rhythm GI: Inspection: normal to inspection GI Palp: No No hepatosplenomegaly present Auscultation: normal bowel sounds Rectal Exam: deferred Skin: General skin exam: normal color Psych: Appearance: grossly normal Mental Status: mental status grossly normal Assessment and Plan Assessment and plan (1) Family history of colorectal cancer: Code(s): Z80.0 - Family history of malignant neoplasm of digestive organs Status: Acute Assessment and Plan: The patient is deemed a good candidate for the procedure. Consent signed. Will proceed.
[2024-12-06] MEDS: SIMETHICONE ORAL SUSPENSION 20 MG/0.3 ML 30 ML BOTTLE 0.6 ML IRRIGATION (07:58)
[2024-12-06 08:06] VITALS: BP 118/83; PULSE 83; RESP 18; O2SAT 100
[2024-12-06 08:16] VITALS: BP 128/83; PULSE 80; RESP 17; O2SAT 100
[2024-12-06 08:26] VITALS: BP 127/89; PULSE 74; RESP 21; O2SAT 100
== END 2024-12-06 08:35 | disposition home or self-care (01) ==
PROVIDERS: PCP Family Medicine; Referring Provider Family Medicine; Visit Provider Internal Medicine Gastroenterology
PROC: 0DJD8ZZ Inspection of Lower Intestinal Tract, Via Natural or Artificial Opening Endoscopic (ICD-10-PCS; CPT 45378; principal; 2024-12-06 08:00)
DX: Z12.11 Encounter for screening for malignant neoplasm of colon (principal); E11.9 Type 2 diabetes mellitus without complications; I10 Essential (primary) hypertension; F12.90 Cannabis use, unspecified, uncomplicated; Z79.84 Long term (current) use of oral hypoglycemic drugs; Z79.85 Long-term (current) use of injectable non-insulin antidiabetic drugs; Z87.891 Personal history of nicotine dependence; Z80.0 Family history of malignant neoplasm of digestive organs
CPT/HCPCS: G0105; 82948; J2003; J2704; J7120

== ENCOUNTER 2025-04-22 09:20 | Outpatient (CLI) | payer MEDICARE, MEDICAID, SELFPAY ==
--- OUTSIDE RECORDS SUMMARY | 2025-04-22 10:06 | XMS_ITS | Clinical Summary ---
Author Organization [facility] Address [address] [place] [address] Care Team Providers Care Drum Handler Name Role Phone Unknown, Notinfile Primary Care [...] History Medical History Date Comments Diabetes mellitus Hypertension Family History Medical History Relation Name [...] eGFR 03/18/2023 03/18/2022, 03/13/2022 Influenza Vaccine (#1) 2025 DTaP/Tdap/Td Vaccine (2 - Td or [...] MD LAB URINE ORDERABLES Final Re sult [facility] * [...] PM CDT 03/18/2022 2:21 PM CDT Narrative [facility] - 03/18/2022 3:25 PM [...] MD LAB BLOOD ORDERABLES Final Re sult [facility] * [...] Most Recently Relevant to Health Maintenance Insurance [employer] [employer] [facility] [employer] [facility] [employer] Care Teams Drum Handler Relationship Specialty Start Date End Date Unknown, Notinfile PCP - General 12/10/21
[2025-04-22 10:10] LABS: Hemoglobin A1C 6.7 % (<5.7)
[2025-04-22 10:17] LABS: Alanine Aminotransferase 24 U/L (6-35); Albumin Level 4.8 g/dL (3.5-5.1); Alkaline Phosphatase 56 U/L (38-126); Anion Gap 12 mmol/L (4-12); Aspartate Amino Transferase 30 U/L (14-36); Bilirubin,Total 0.6 mg/dL (0.2-1.3); Blood Urea Nitrogen 17 mg/dL (7-17); Calcium 10.2 mg/dL (8.4-10.2); Carbon Dioxide 25 mmol/L (22-30); Chloride 104 mmol/L (98-107); Cholesterol 233 mg/dL (0-200); Estimated Glomerular Filt Rate 53; Glucose 128 mg/dL (65-110); HDL Direct 68 mg/dL; Osmolality Calculated 295 mOsm/kg (285-295); Potassium 4.8 mmol/L (3.4-5.0); Sodium 141 mmol/L (137-145); Total Protein 7.2 g/dL (6.3-8.2); Triglycerides 151 mg/dL (<150)
[2025-04-22 10:26] LABS: MALB Creatinine Ratio 0.0 mg/g (0-30)
== END 2025-04-22 09:21 | disposition home or self-care (01) ==
LOC: CHSLAB 09:21
PROVIDERS: PCP Family Medicine; Visit Provider Family Medicine
DX: E11.9 Type 2 diabetes mellitus without complications (principal)
CPT/HCPCS: 36415; 80053; 80061; 82043; 83036